=== PATIENT | male | born 1990 | race Hispanic/Latino ===

== ENCOUNTER 2018-05-10 13:16 | Emergency (ER) | payer OTHER ==
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
--- NOTE | 2018-05-10 14:09 | XRay Report ---
LEFT FOOT, 3 views: History: Left foot pain. The bony architecture is intact. Bony alignment is normal. No soft tissue abnormalities are seen. The joint spaces appear preserved. IMPRESSION: Normal left foot.
[2018-05-10] MEDS ORDERED: MOTRIN PO ONE (14:16)
[2018-05-10 14:30] VITALS: BP 121/72
== END 2018-05-10 14:29 | disposition home or self-care (01) ==
LOC: ED 13:16
DX: S96.912A Strain of unspecified muscle and tendon at ankle and foot level, left foot, initial encounter (principal); V28.0XXA Motorcycle driver injured in noncollision transport accident in nontraffic accident, initial encounter; Y93.89 Activity, other specified; Y99.8 Other external cause status; Y92.488 Other paved roadways as the place of occurrence of the external cause